=== PATIENT | female | born 1995 | race Caucasian/White ===

== ENCOUNTER 2024-07-26 02:00 | Inpatient (IN) | payer OTHER, SELFPAY ==
[2024-07-25 22:23] VITALS: BMI 27.4
[2024-07-25 22:34] VITALS: BP 139/73; PULSE 83; RESP 16; TEMP 36.7
[2024-07-26] VITALS (86 sets, daily range): BP systolic 104–145; BP diastolic 52–83; PULSE 9–136; RESP 16; TEMP 36.6–37.6; O2SAT 87–100
[2024-07-26] MEDS: Lactated Ringers 1,000 ML 999 ML IV (02:20)
[2024-07-26 02:39] LABS: Absolute Lymphocyte Count 1.05 X10^3/uL (0.83-4.51); Absolute Neutrophil Count 7.8 X10^3/uL (2.0-7.7); Basophil# 0.05 X10^3/uL; Basophil% 0.5 % (0-1); Eosinophil# 0.04 X10^3/uL; Eosinophils% 0.4 % (0-5); Hematocrit 38.7 % (37-47); Hemoglobin 13.4 g/dL (12.0-15.0); Lymphocyte # 1.05 X10^3/ul (0.83-4.51); Lymphocyte % 10.7 % (19-41); Mean Corp Hgb Conc 34.6 g/dL (32-36); Mean Corpuscular Hgb 33.4 pg (27.0-32.0); Mean Corpuscular Volume 96.5 fL (81-99); Mean Platelet Vol. 11.4 fl (6.2-12.0); Monocyte# 0.76 X10^3/uL; Monocyte% 7.8 % (0-10); NRBC Flagged by Analyzer 0 % (0-5); Neutrophil # 7.79 X10^3/uL (2.7-7.7); Neutrophil % 79.5 % (47-70); Platelet Count 141 K/mm3 (150-450); RBC Distribution Width CV 14.1 % (11.6-14.6); RBC Distribution Width SD 49.7 fl (35.1-43.9); Red Blood Count 4.01 M/mm3 (4.2-5.4); White Blood Count 9.8 K/mm3 (4.4-11.0)
[2024-07-26 03:05] LABS: Syphilis Antibodies Nonreactive (Nonreactive)
[2024-07-26] MEDS: Lactated Ringers 1,000 ML 200 ML IV ×2 (03:29→08:30)
[2024-07-26] MEDS: fentaNYL-bupivacaine (epidural) 100 ML BAG EPIDURAL ×2 (03:30→07:42)
[2024-07-26] MEDS: Ondansetron 4 MG/2 ML Vial IV ×2 (07:42→11:43)
--- NOTE | 2024-07-26 08:31 | PCM.HP.OB ---
HPI - General General Date of Admission: 07/26/24 HPI Narrative DOMINIC CARLOS, is a 29 F @ 39 weeks who presents c/o contractions. pt reports no vb or lof. Maternal Data Information Final KARI: 07/31/24 [facility] Medical History (Updated 07/26/24 @ 08:[address] Tiffanie Montgomery MD) Anemia Home Medications ?Medication ?Instructions ?Recorded ?Last Taken ?Type vit no.95-ferrous 1 tab PO DAILY 07/26/24 Unknown History fumarate 28 mg-folic acid 800 mcg tablet () Allergy/AdvReac Type Severity Reaction Status Date / Time No Known Allergies Allergy Verified 07/26/24 01:02 Surgical History no surgical history Social History Smoking Status: Never smoker History Elective abortions Hx Para 0 Spontaneous abortions Hx # Term Pregnancies Ectopic pregnancies Hx # Pregnancies Multiple births # of living children NST FHR Rate Baby A Baseline: 140 Variability:: Moderate Accelerations:: 15 x 15 Decelerations:: None NST Reactive:: Yes FHR Category:: Category I Uterine Activity:: q1-2 min Vital Signs Vital Signs Vital Signs: 07/25/24 22:34 07/25/24 22:34 07/25/24 22:34 Temperature Temperature Source Temporal Pulse Rate 83 Respiratory Rate Blood Pressure 139/73 H BP Systolic 139 BP Diastolic 73 Pulse Ox 07/25/24 22:34 07/25/24 22:34 07/26/24 02:13 Temperature 98.0 F Temperature Source Temporal Pulse Rate Respiratory Rate 16 Blood Pressure BP Systolic BP Diastolic Pulse Ox 07/26/24 02:13 07/26/24 02:13 07/26/24 03:02 Temperature 98.2 F Temperature Source Pulse Rate Respiratory Rate 16 Blood Pressure 126/73 H BP Systolic 126 BP Diastolic 73 Pulse Ox 07/26/24 03:02 07/26/24 03:15 07/26/24 03:15 Temperature Temperature Source Pulse Rate 97 116 H Respiratory Rate Blood Pressure BP Systolic BP Diastolic Pulse Ox 100 07/26/24 03:16 07/26/24 03:16 07/26/24 03:20 Temperature Temperature Source Pulse Rate 113 H 99 Respiratory Rate Blood Pressure 145/83 H BP Systolic 145 BP Diastolic 83 Pulse Ox 07/26/24 03:20 07/26/24 03:21 07/26/24 03:21 Temperature Temperature Source Pulse Rate 99 Respiratory Rate Blood Pressure 132/71 H BP Systolic 132 BP Diastolic 71 Pulse Ox 100 07/26/24 03:26 07/26/24 03:26 07/26/24 03:27 Temperature Temperature Source Pulse Rate 105 H Respiratory Rate Blood Pressure 119/60 BP Systolic 119 BP Diastolic 60 Pulse Ox 100 07/26/24 03:27 07/26/24 03:29 07/26/24 03:29 Temperature Temperature Source Pulse Rate 108 H 109 H Respiratory Rate Blood Pressure 117/55 L BP Systolic 117 BP Diastolic 55 Pulse Ox 07/26/24 03:31 07/26/24 03:31 07/26/24 03:33 Temperature Temperature Source Pulse Rate 110 H Respiratory Rate Blood Pressure 112/55 L BP Systolic 112 BP Diastolic 55 Pulse Ox 100 07/26/24 03:33 07/26/24 03:36 07/26/24 03:36 Temperature Temperature Source Pulse Rate 102 H 99 Respiratory Rate Blood Pressure 118/57 L BP Systolic 118 BP Diastolic 57 Pulse Ox 07/26/24 03:36 07/26/24 03:36 07/26/24 03:41 Temperature Temperature Source Pulse Rate 100 Respiratory Rate Blood Pressure 118/56 L BP Systolic 118 BP Diastolic 56 Pulse Ox 100 07/26/24 03:41 07/26/24 03:41 07/26/24 03:46 Temperature Temperature Source Pulse Rate 100 101 H Respiratory Rate Blood Pressure BP Systolic BP Diastolic Pulse Ox 100 07/26/24 03:46 07/26/24 03:51 07/26/24 03:51 Temperature Temperature Source Pulse Rate 99 Respiratory Rate Blood Pressure BP Systolic BP Diastolic Pulse Ox 100 100 07/26/24 03:54 07/26/24 03:54 07/26/24 03:56 Temperature Temperature Source Pulse Rate 105 H 94 Respiratory Rate Blood Pressure 114/54 L BP Systolic 114 BP Diastolic 54 Pulse Ox 07/26/24 03:56 07/26/24 04:01 07/26/24 04:01 Temperature Temperature Source Pulse Rate 97 Respiratory Rate Blood Pressure BP Systolic BP Diastolic Pulse Ox 99 100 07/26/24 04:04 07/26/24 04:04 07/26/24 04:06 Temperature Temperature Source Pulse Rate 91 108 H Respiratory Rate Blood Pressure 115/57 L BP Systolic 115 BP Diastolic 57 Pulse Ox 07/26/24 04:06 07/26/24 04:11 07/26/24 04:11 Temperature Temperature Source Pulse Rate 101 H Respiratory Rate Blood Pressure BP Systolic BP Diastolic Pulse Ox 99 100 07/26/24 04:15 07/26/24 04:15 07/26/24 04:16 Temperature Temperature Source Pulse Rate 100 98 Respiratory Rate Blood Pressure 104/52 L BP Systolic 104 BP Diastolic 52 Pulse Ox 07/26/24 04:16 07/26/24 04:21 07/26/24 04:21 Temperature Temperature Source Pulse Rate 112 H Respiratory Rate Blood Pressure BP Systolic BP Diastolic Pulse Ox 98 100 07/26/24 04:25 07/26/24 04:25 07/26/24 04:26 Temperature Temperature Source Pulse Rate 96 105 H Respiratory Rate Blood Pressure 109/56 L BP Systolic 109 BP Diastolic 56 Pulse Ox 07/26/24 04:26 07/26/24 04:31 07/26/24 04:31 Temperature Temperature Source Pulse Rate 83 Respiratory Rate Blood Pressure BP Systolic BP Diastolic Pulse Ox 100 100 07/26/24 04:35 07/26/24 04:35 07/26/24 04:36 Temperature Temperature Source Pulse Rate 94 100 Respiratory Rate Blood Pressure 109/57 L BP Systolic 109 BP Diastolic 57 Pulse Ox 07/26/24 04:36 07/26/24 04:41 07/26/24 04:41 Temperature Temperature Source Pulse Rate 109 H Respiratory Rate Blood Pressure BP Systolic BP Diastolic Pulse Ox 100 100 07/26/24 04:44 07/26/24 04:44 07/26/24 04:46 Temperature Temperature Source Pulse Rate 96 97 Respiratory Rate Blood Pressure 117/59 L BP Systolic 117 BP Diastolic 59 Pulse Ox 07/26/24 04:46 07/26/24 05:06 07/26/24 05:06 Temperature Temperature Source Pulse Rate 101 H Respiratory Rate Blood Pressure 108/62 BP Systolic 108 BP Diastolic 62 Pulse Ox 100 07/26/24 05:21 07/26/24 05:21 07/26/24 05:37 Temperature Temperature Source Pulse Rate 118 H Respiratory Rate Blood Pressure 111/64 120/66 BP Systolic 111 120 BP Diastolic 64 66 Pulse Ox 07/26/24 05:37 07/26/24 05:51 07/26/24 05:51 Temperature Temperature Source Pulse Rate 130 H 123 H Respiratory Rate Blood Pressure 114/56 L BP Systolic 114 BP Diastolic 56 Pulse Ox 07/26/24 05:51 07/26/24 05:51 07/26/24 05:51 Temperature 98.0 F Temperature Source Temporal Pulse Rate Respiratory Rate 16 Blood Pressure BP Systolic BP Diastolic Pulse Ox 07/26/24 07:09 07/26/24 07:09 07/26/24 07:10 Temperature Temperature Source Pulse Rate 9 L Respiratory Rate Blood Pressure 133/62 H BP Systolic 133 BP Diastolic 62 Pulse Ox 87 07/26/24 07:10 07/26/24 07:10 07/26/24 07:10 Temperature Temperature Source Temporal Pulse Rate 121 H Respiratory Rate 16 Blood Pressure BP Systolic BP Diastolic Pulse Ox 07/26/24 07:10 07/26/24 08:19 07/26/24 08:19 Temperature 99.1 F Temperature Source Pulse Rate 136 H Respiratory Rate Blood Pressure 124/59 H BP Systolic 124 BP Diastolic 59 Pulse Ox Weight Weight: 79.435 kg Body Mass Index (BMI) 27.4 Physical Exam Narrative VE: arom performed- Clear fluid. 10/100/+1 Const alert and oriented x3 General Appearance: cooperative HEENT normocephalic GI GI Narrative: Gravid, non tender to palpation. OB / External & Speculum: external exam normal Extremity normal to inspection Skin no rashes or lesions noted Neuro oriented x3 and CN's II-XII intact bilaterally Psych Appearance: grossly normal Labs Labs Labs: Blood Type AB POSITIVE Antibody Screen NEGATIVE Hct 38.7 % (37-47) Hgb 13.4 g/dL (12.0-15.0) Syphilis Total Ab Nonreactive (Nonreactive) Assessment & Plan (1) Polyhydramnios affecting in third trimester: (2) LGA (large for gestational age) fetus: (3) Active labor: PLAN: Plan Admit to L&D Montior FHR/TOCO Epidural - resting comfortably Monitor VS EFW 9lbs- pelvis does feel adequate will start pushing , anticipate
[2024-07-26] MEDS: LACTATED RINGERS 500 ML 999 ML IV ×2 (09:09→12:59)
[2024-07-26] MEDS: Oxytocin 15 Units/NS 250ml 15 UNITS/250 ML IV.SOLN 83 UNITS IV (12:23)
[2024-07-26] MEDS: Oxytocin 10 UNITS/ML Vial IM (12:25)
--- NOTE | 2024-07-26 12:57 | OB.VAGDELI_ITS ---
Vaginal Delivery Maternal Presentation Maternal Presentation: Active Labor Vaginal Delivery Information Procedure Performed: Vacuum Assisted Vaginal Delivery Station at time of placement: +3 Number of vacuum pulls: 2 Number of vacuum pop offs: 0 Surgeon/Practitioner: Tiffanie Montgomery Date of Procedure: 07/26/24 Pre-Procedure Diagnosis: 39 weeks, LGA, Polyhydramnios Post-Procedure Diagnosis: same, live male infant Type of anesthesia: Epidural Estimated Blood Loss: 400 Time of Delivery: 12:23 Findings Description of procedure: Patient progressed to fully dilated had been pushing for approximately 3-1/2 hours. Maternal exhaustion. Head was at the perineum approximately $0.50 piece size of the head was visualized in between pushing. At this time I offered assistance with vacuum extraction. I discussed the risk benefits and alter natives with the patient and . After discussion and attempted continued pushing the patient decided for vacuum assistance delivery. Epidural was found to be adequate. The bladder was drained with approximately 200 cc of clear yellow urine. The Kiwi vacuum was placed at the flexion point. It was initiated at 550 mmHg. 2 pulls with the vacuum with 2 contractions and the head was delivered the vacuum was then removed. The anterior shoulder was delivered without complication with gentle downward traction followed by the rest the 's body without complication. The infant was placed on the mother's chest for immediate skin to skin. Delayed cord clamping was performed. The cord was then clamped and cut. Brisk bleeding was appreciated. IM Pitocin and IV Pitocin were then started. Placenta was delivered intact without complication. The fundus was firm. Bleeding was appreciated from 2 second- degree vaginal wall lacerations. The lacerations were repaired using 2-0 Vicryl suture. There is a second-degree perineal laceration that was repaired using 2- 0 Vicryl suture and a 3-0 Rapide. Patient tolerated the procedure well. Excellent hemostasis was appreciated. Fundus remained firm. 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
[2024-07-26] MEDS: Acetaminophen 500 MG Tablet 1000 MG PO ×2 (14:54→20:57)
[2024-07-26] MEDS: Benzocaine/Lanolin/Aloe Vera 85 GM Spray 1 SPRAY TOPICAL (14:56)
[2024-07-26] MEDS: Ibuprofen 600 MG Tablet PO ×2 (16:48→23:17)
[2024-07-27] VITALS (13 sets, daily range): BP systolic 105–128; BP diastolic 52–63; PULSE 87–114; RESP 15–18; TEMP 36.5–36.8; O2SAT 79–100
[2024-07-27] MEDS: Acetaminophen 500 MG Tablet 1000 MG PO ×4 (03:43→23:40)
[2024-07-27] MEDS: Ibuprofen 600 MG Tablet PO ×3 (06:42→20:27)
--- NOTE | 2024-07-27 08:17 | PCM.PN.OB ---
Subjective Subjective Doing well. Ambulating and voiding without difficulty. Mild lochia. Breast feeding. No RUDD Objective Data Objective Data Vital Signs: Vital Signs Temp Pulse Resp BP Pulse Ox O2 Del Method 98.1 F 112 H 15 128/60 H 100 Room Air 07/27/24 03:59 07/27/24 03:59 07/27/24 03:59 07/27/24 03:59 07/27/24 03:59 07/27/24 03:59 Oxygen Delivery Method Room Air Weight: 79.435 kg Body Mass Index (BMI) 27.4 Intake & Output: Intake and Output for Last 24 Hours 07/25/24 07/26/24 07/27/24 23:59 23:59 23:59 Intake Total 4250 / 4250 Output Total 3700 / 3700 Balance 550 / 550 Lab / Micro Data 07/26/24 02:20 ROS Constitutional Constitutional: Denies headache(s) Cardiovascular Cardiovascular: Denies chest pain or dyspnea Gastrointestinal Gastrointestinal: Denies nausea or vomiting Genitourinary Genitourinary: Denies dysuria Physical Exam Const alert, oriented x3 and no apparent distress General Appearance: cooperative and comfortable Eyes PERRL and EOMs intact bilaterally Resp normal respiratory effort GI soft to palpation and non-tender Uterus Palpation: uterus fundus firm ( below umbilicus) Extremity normal to inspection and full ROM Neuro oriented x3 and CN's II-XII intact bilaterally Psych mental status grossly normal Assessment & Plan (1) Vacuum extraction, delivered, current hospitalization:
[2024-07-27] MEDS: Senna/Docusate Sodium 1 Tablet PO (09:49)
[2024-07-27 14:55] LABS: Absolute Lymphocyte Count 1.33 X10^3/uL (0.83-4.51); Absolute Neutrophil Count 9.5 X10^3/uL (2.0-7.7); Basophil# 0.04 X10^3/uL; Basophil% 0.3 % (0-1); Eosinophil# 0.13 X10^3/uL; Eosinophils% 1.1 % (0-5); Hematocrit 25.2 % (37-47); Hemoglobin 8.5 g/dL (12.0-15.0); Lymphocyte # 1.33 X10^3/ul (0.83-4.51); Lymphocyte % 11.3 % (19-41); Mean Corp Hgb Conc 33.7 g/dL (32-36); Mean Corpuscular Hgb 33.6 pg (27.0-32.0); Mean Corpuscular Volume 99.6 fL (81-99); Monocyte# 0.67 X10^3/uL; Monocyte% 5.7 % (0-10); NRBC Flagged by Analyzer 0 % (0-5); Neutrophil # 9.47 X10^3/uL (2.7-7.7); Neutrophil % 80.8 % (47-70); Platelet Count 147 K/mm3 (150-450); RBC Distribution Width CV 14.7 % (11.6-14.6); RBC Distribution Width SD 52.7 fl (35.1-43.9); Red Blood Count 2.53 M/mm3 (4.2-5.4); White Blood Count 11.7 K/mm3 (4.4-11.0)
[2024-07-28] MEDS: Ibuprofen 600 MG Tablet PO (04:30)
[2024-07-28 06:00] VITALS: BP 133/66; PULSE 65; RESP 16; TEMP 36.6; O2SAT 98
[2024-07-28 06:28] VITALS: BP 133/66; PULSE 108
--- NOTE | 2024-07-28 06:31 | PCM.PN.OB ---
Subjective Subjective Doing well. Ambulating and voiding without difficulty. Mild lochia. Breast feeding. Objective Data Objective Data Vital Signs: Vital Signs Temp Pulse Resp BP Pulse Ox O2 Del Method 97.8 F 108 H 16 133/66 H 98 Room Air 07/28/24 06:00 07/28/24 06:28 07/28/24 06:00 07/28/24 06:28 07/28/24 06:00 07/28/24 06:00 Oxygen Delivery Method Room Air Weight: 79.435 kg Body Mass Index (BMI) 27.4 Intake & Output: Intake and Output for Last 24 Hours 07/26/24 07/27/24 07/28/24 23:59 23:59 23:59 Intake Total 4250 / 4250 Output Total 3700 / 3700 Balance 550 / 550 Lab / Micro Data 07/27/24 14:35 Labs: Laboratory Results - last 24 hr 07/27/24 14:35: WBC 11.7 H, RBC 2.53 L, Hgb 8.5 L, Hct 25.2 L, MCV 99.6 H, MCH 33.6 H, MCHC 33.7, RDW Std Deviation 52.7 H, RDW Coeff of Miguel 14.7 H, Plt Count 147 L, MPV 11.0, Immature Gran % (Auto) 0.800, Neut % (Auto) 80.8 H, Lymph % (Auto) 11.3 L, [place] % (Auto) 5.7, Eos % (Auto) 1.1, Baso % (Auto) 0.3, Absolute Neuts (auto) 9.5 H, Absolute Lymphs (auto) 1.33, Nucleated RBC % 0 ROS Constitutional Constitutional: Denies headache(s) Cardiovascular Cardiovascular: Denies chest pain or dyspnea Gastrointestinal Gastrointestinal: Denies nausea or vomiting Genitourinary Genitourinary: Denies dysuria Physical Exam Const alert, oriented x3 and no apparent distress General Appearance: cooperative and comfortable Eyes PERRL and EOMs intact bilaterally Resp normal respiratory effort GI soft to palpation and non-tender Uterus Palpation: uterus fundus firm ( below umbilicus) Extremity normal to inspection and full ROM Neuro oriented x3 and CN's II-XII intact bilaterally Psych mental status grossly normal Assessment & Plan (1) Vacuum extraction, delivered, current hospitalization: PLAN: Plan Discharge home.
--- NOTE | 2024-07-28 06:32 | PCM.DC.SUM ---
Providers Date of Admission: 07/26/24 Date of Discharge: 07/28/24 Primary Care Physician: Dr. Campos Chao MD Reason For Visit: VAGINAL Diagnosis Discharge Diagnosis (1) Vacuum extraction, delivered, current hospitalization: Status: Acute Code(s): O75.9 - Complication of labor and delivery, unspecified Plan Discharge home. Medications at Discharge Home Medications vit no.95-ferrous fumarate 28 mg-folic acid 800 mcg tablet () 1 tab PO DAILY 07/26/24 Hospital Course Operations None Procedures None Summary of Care Provided Minutes Spent on Discharge: 20 Hospital Course: IOL for LGA. Vacuum assisted vaginal delivery. Uncomplicated . Breast feeding. Physical Exam Const alert and no apparent distress Narrative: Fundus firm, below umbilicus. Weight / BMI Weight Weight: 79.435 kg Body Mass Index (BMI) 27.4 ABG / Lab / Microbiology Data 07/27/24 14:35 Laboratory: Laboratory Results - last 24 hr 07/27/24 14:35: WBC 11.7 H, RBC 2.53 L, Hgb 8.5 L, Hct 25.2 L, MCV 99.6 H, MCH 33.6 H, MCHC 33.7, RDW Std Deviation 52.7 H, RDW Coeff of Miguel 14.7 H, Plt Count 147 L, MPV 11.0, Immature Gran % (Auto) 0.800, Neut % (Auto) 80.8 H, Lymph % (Auto) 11.3 L, [place] % (Auto) 5.7, Eos % (Auto) 1.1, Baso % (Auto) 0.3, Absolute Neuts (auto) 9.5 H, Absolute Lymphs (auto) 1.33, Nucleated RBC % 0 D/C Instructions May resume sexual activity in: 6 weeks DC O2, CPAP, BIPAP Needs Home O2 Discharge instructions: No Please Follow Up With: Veronica Rangel MD When: Follow up with our office in 1-2 and 6 weeks or as needed. [phone] Meaningful Use Info Meaningful Use Meaningful Use Diagnoses (Choose all that apply): None applicable Ischemic Stroke Statin Dosing Therapy Reference: STATIN DOSE THERAPY REFERENCE: * Patients > 75 years receive moderate or high dose statin therapy. * Patients 75 years or YOUNGER should receive HIGH intensity statin dose unless contraindicated. You will be required to document reason for non-treatment if statin daily dose does not meet guidelines. HIGH DOSE STATIN THERAPY DAILY Atorvastatin > than or = to 40 mg Rosuvastatin > than or = to 20 mg Amlodipine + Atorvastatin > than or = to 2.5/40 mg Ezetimibe + Simvastatin 10/80 mg Simvastatin 80mg Discharge Plan Admission Admit Date/Time: 07/26/24 02:00 Primary Reason for Your Visit: labor Attending Provider: Tiffanie Montgomery Primary Care Provider: Campos Chao Discharge Orders/Prescriptions Prescriptions: Continued PNV cmb#95-ferrous fumarate-FA [] 28 mg iron- 800 mcg tablet 1 tab PO DAILY Referrals / Follow Up: Campos Chao MD [Primary Care Provider] - Disposition Disposition (needs filled in before D/C Order can be placed): Home, Self Care
[2024-07-28 08:51] VITALS: BP 121/67; PULSE 100
[2024-07-28] MEDS: Senna/Docusate Sodium 1 Tablet PO (09:04)
[2024-07-28 09:05] VITALS: BP 121/67; PULSE 100; RESP 16; TEMP 36.7; O2SAT 99
[2024-07-28] MEDS: Acetaminophen 500 MG Tablet 1000 MG PO (09:06)
== END 2024-07-28 12:27 | disposition home or self-care (01) | DRG 807 ==
LOC: WPOUT 02:05 → WP 02:05
PROVIDERS: Obstetrics & Gynecology; Admitting Provider Obstetrics & Gynecology; PCP Family Medicine; Referring Provider Obstetrics & Gynecology; Visit Provider Obstetrics & Gynecology
DX: O36.63X0 Maternal care for excessive fetal growth, third trimester, not applicable or unspecified (principal); Z37.0 Single live birth; O40.3XX0 Polyhydramnios, third trimester, not applicable or unspecified; D64.9 Anemia, unspecified; O70.1 Second degree perineal laceration during delivery; O90.81 Anemia of the puerperium; Z3A.39 39 weeks gestation of pregnancy
CPT/HCPCS: 59025; 59050; 85025; 86780; 86850; 86900; 86901; 99221; G0378; J2405